=== PATIENT | female | born 1995 | race Caucasian/White ===

== ENCOUNTER 2019-04-28 10:18 | Inpatient (IN) ==
--- NOTE | 2019-04-27 09:27 | Anesthesiology Consultation ---
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 Surgery Operation Date: 04/28/19 11:15 Proposed Procedures p Colonoscopy Dr Donis - Pedrito Donis MD Height/Weight Height: 5 ft 7 in Weight: 54.431 kg Allergies Allergy/AdvReac Type Severity Reaction Status Date / Time cat dander Allergy Mild sneezing, Verified 04/28/19 10:28 watery eyes Medications Home Medications Medication Instructions Recorded Confirmed Last Taken acetaminophen [Tylenol] 325 mg PO QID PRN 04/02/18 04/28/19 04/28/19 06:30 albuterol sulfate 1 puff INHALATION Q6H PRN 04/24/19 04/28/19 Unknown balsalazide 750 mg PO QID 04/24/19 04/28/19 04/25/19 levonorgestrel [Mirena] 20 mcg INTRAUTERINE UD 04/24/19 04/28/19 04/28/19 prednisone 50 mg PO QAM 04/24/19 04/28/19 04/28/19 06:45 ondansetron 4 mg PO Q8H PRN #10 tab 04/27/19 04/27/19 tramadol 50 mg PO Q6H PRN 04/28/19 04/28/19 04/27/19 Past Medical History Medical History Anxiety no meds Asthma exercise induced--inhaler prn Ulcerative colitis Past Family History Family History Family/Other Family hx of colon cancer Family/Other Family hx colonic polyps Other No family history of adverse response to anesthesia No significant family history Past Surgical History Surgical History History of colonoscopy History of wisdom tooth extraction Social History Smoking Status: Never smoker Do You Dip or Chew Tobacco: No Hx Alcohol Use: Yes Alcohol type: beer and hard liquor alcohol intake frequency: other Alcohol Intake Frequency Comment: 1 drink a month Hx Substance Use: Yes (per pt "hasnt used marijuana for years") substance use type: marijuana Last Used Substance: Unknown Last Used Substance Other:: years ago Physical Exam Vital Signs Last Vital Signs Temp 36.9 C 04/28/19 10:41 Pulse 105 H 04/28/19 10:41 Resp 18 04/28/19 10:41 BP 105/68 04/28/19 10:41 Pulse Ox 99 04/28/19 10:41 Testing Laboratory Results 04/28/19 10:37 POC Ur Test NEG
[2019-04-28] MEDS ORDERED: ePHEDrine sulfate 50 MG/ML AMP IV PRN (10:59)
[2019-04-28] MEDS ORDERED: fentaNYL citrate 100 MCG/2 ML VIAL IV PRN (10:59)
[2019-04-28] MEDS ORDERED: ATROPINE SULFATE 0.1 MG/ML 10ML SYR IV PRN (10:59)
[2019-04-28] MEDS ORDERED: ONDANSETRON INJ 2 MG/ML 2 ML VIAL IV PRN ×2 (10:59→15:44)
[2019-04-28] MEDS ORDERED: PROMETHAZINE HCL 6.25 MG in SODIUM CHLORIDE 0.9% 50 ML IV PRN (10:59)
--- NOTE | 2019-04-28 11:10 | History & Physical Report ---
Date of Service April 28, 2019 Assessment & Plan (1) Encounter for pre-operative examination: History of Present Illness Primary Care Provider: [facility] Ulcerative colitis with suspected flare Allergies Allergy/AdvReac Type Severity Reaction Status Date / Time cat dander Allergy Mild sneezing, Verified 04/28/19 10:28 watery eyes Home Medications Home Medications Medication Instructions Recorded Confirmed Type acetaminophen [Tylenol] 325 mg PO QID PRN 04/02/18 04/28/19 History albuterol sulfate 1 puff INHALATION Q6H PRN 04/24/19 04/28/19 History balsalazide 750 mg PO QID 04/24/19 04/28/19 History levonorgestrel [Mirena] 20 mcg INTRAUTERINE UD 04/24/19 04/28/19 History prednisone 50 mg PO QAM 04/24/19 04/28/19 History ondansetron 4 mg PO Q8H PRN #10 tab 04/27/19 Rx tramadol 50 mg PO Q6H PRN 04/28/19 04/28/19 History Past Med/Surg History Medical History Anxiety no meds Asthma exercise induced--inhaler prn Ulcerative colitis Surgical History History of colonoscopy History of wisdom tooth extraction Family History Family/Other Family hx of colon cancer Family/Other Family hx colonic polyps Other No family history of adverse response to anesthesia No significant family history Social History Preferred Language: Romansh Communication Ability: Effective Ict Managers Required: No Beliefs That Will Affect Care: None Current Living Situation: Significant Other and Other Current Living Situation Comment: Lives with boyfriend and roommates Other Information That Helps Us Care for You: No Feels Safe at Home: Yes Safety Concerns: Feels Safe At This Time Smoking Status: Never smoker Do You Dip or Chew Tobacco: No ; Second Hand Exposure: Yes (mom smoked) ; Tobacco Cessation Education Requested by Patient: No Hx Alcohol Use: Yes Alcohol type: beer and hard liquor Hx Substance Use: Yes (per pt "hasnt used marijuana for years") substance use type: marijuana Last Used Substance: Unknown Last Used Substance Other:: years ago Review of Systems All systems reviewed & are unremarkable except as noted in HPI & below Physical Exam Constitutional: comfortable; no acute distress Respiratory: normal respiratory effort, lungs clear to auscultation Cardiovascular: RRR, no murmur, no edema Gastrointestinal (Abdomen): normal bowel sounds, soft, nontender, no hepatosplenomegaly Results & Data Vital Signs (Past 12 Hours) Vital Signs Temp Pulse Resp BP Pulse Ox 04/28/19 10:41 36.9 C 105 H 18 105/68 99
[2019-04-28] MEDS ORDERED: PROPOFOL IV EMULSION 10 MG/ML 20 ML VIAL IV ONE (11:45)
[2019-04-28] MEDS ORDERED: LIDOCAINE HCL 2% 2 ML VIAL/AMP(20MG/ML) INFIL ONE (11:45)
--- NOTE | 2019-04-28 11:50 | Anesthesiology Progress Note ---
Date of Service April 28, 2019 Anesthesia Post Procedure Vital Signs Vital Signs: Temp Pulse Resp BP Pulse Ox 04/28/19 11:45 88 16 98/60 L 97 04/28/19 10:41 36.9 C 105 H 18 105/68 99 Transfer of Care Handoff Completed per policy Notes Mental Status: alert / awake / arousable and participated in evaluation Patient Amnestic to Procedure: Yes Nausea / Vomiting: adequately controlled Pain: adequately controlled Airway Patency, RR, SpO2: stable & adequate BP & HR: stable & adequate Hydration State: stable & adequate Anesthetic Complications: no major complications apparent and Pt Satisfied with anesthetic care
--- NOTE | 2019-04-28 12:24 | GI REPORT ---
Patient Name: Leigh Ann Leonardo Procedure Date: 04/28/2019 11:05 AM Date of : 1995 Admit Type: Outpatient Age: 24 Gender: Female Attending MD: Pedrito Donis MD Procedure: Colonoscopy Providers: Pedrito Donis MD Referring MD: Herbert Mccracken Indications: Rectal bleeding, Follow-up of ulcerative colitis Medicines: Propofol per Anesthesia Complications: No immediate complications. Estimated Blood Loss: Estimated blood loss: none. Procedure: Pre-Anesthesia Assessment: - Prior to the procedure, a History and Physical was performed, and patient medications, allergies and sensitivities were reviewed. The patient's tolerance of previous anesthesia was reviewed. - The risks and benefits of the procedure and the sedation options and risks were discussed with the patient. All questions were answered and informed consent was obtained. - Patient identification and proposed procedure were verified prior to the procedure by the physician and the nurse. The procedure was verified in the procedure room. - Pre-procedure physical examination revealed no contraindications to sedation. After I obtained informed consent, the scope was passed under direct vision. Throughout the procedure, the patient's blood pressure, pulse, and oxygen saturations were monitored continuously. The scope was introduced through the anus and advanced to the terminal ileum. The colonoscopy was performed without difficulty. The patient tolerated the procedure well. The quality of the bowel preparation was good. The terminal ileum, ileocecal valve, appendiceal orifice, and rectum were photographed. Findings: The perianal and digital rectal examinations were normal. The terminal ileum appeared normal. Inflammation was found in a continuous and circumferential pattern from the rectum to the transverse colon which was graded as Wang Score 3 (severe, with spontaneous bleeding, ulcerations) and less severe from the transverse to the cecum with multiple pseudopolyps on the right sided colon. Biopsies were taken with a cold forceps for histology. Verification of patient identification for the specimen was done by the physician and nurse using the patient's name and date. Non-bleeding external hemorrhoids were found during retroflexion. The hemorrhoids were medium-sized. Impression: - The examined portion of the ileum was normal. - Severe (Wang Score 3) pancolitis ulcerative colitis, left side worse than right side. Biopsied. Recommendation: - [facility]. - Start IV Methylprednisolone 20mg q8hrs. - Check ESR, CRP. - VTE prophylaxis. - Rowasa enema 4gm qhs. - Check gold quantifirone and HBV serology. - Initiate process to start Humira Sq as OP. - Full liquid diet. - No aspirin, ibuprofen, naproxen, or other non-steroidal anti-inflammatory drugs. - Await pathology results. - Repeat colonoscopy in 6 months to assess disease activity and to evaluate the response to therapy. - Return to GI office as previously scheduled. Pedrito Donis MD 04/28/2019 12:24:19 PM This report has been signed electronically. Note Initiated On: 04/28/2019 11:05 AM Number of Addenda: 0 I attest to the content of the Intraoperative Record and orders documented therein, exceptions below {[id number]}
--- NOTE | 2019-04-28 14:18 | Gastrointestinal Consultation ---
Date of Consultation April 28, 2019 Assessment & Plan (1) Ulcerative colitis with rectal bleeding: - Start IV Methylprednisolone 20mg q8hrs. - IV Fluids. - Check ESR, CRP, CBC, CMP. - Stool Cx. - VTE prophylaxis. - Rowasa enema 4gm qhs. - Check gold quantifirone and HBV serology. - Initiate process to start Humira Sq as OP. - clear liquid diet. - No NSAIDs. - Surgery evaluation if signs of fulminent colitis (fever, tachycardia, toxic megacolon, peritonitis). History of Present Illness Attending Physician: Pedrito Donis MD 24 years old female patient with ulcerative colitis on Balsalazide, had symptoms of flare a week ago which did not respond to PO steroids, colonoscopy today showed severe pancolits, Left side worse than right, being admitted for IV hydration, IV steroids and bowel rest and management of acute flare. She has rectal bleeding, diarrhea and abdominal pain but no signs of fulminant colitis at this time. Allergies Allergy/AdvReac Type Severity Reaction Status Date / Time cat dander Allergy Mild sneezing, Verified 04/28/19 10:28 watery eyes Home Medications Home Medications Medication Instructions Recorded Confirmed Type acetaminophen [Tylenol] 325 mg PO QID PRN 04/02/18 04/28/19 History albuterol sulfate 1 puff INHALATION Q6H PRN 04/24/19 04/28/19 History balsalazide 750 mg PO QID 04/24/19 04/28/19 History levonorgestrel [Mirena] 20 mcg INTRAUTERINE UD 04/24/19 04/28/19 History prednisone 50 mg PO QAM 04/24/19 04/28/19 History ondansetron 4 mg PO Q8H PRN #10 tab 04/27/19 Rx tramadol 50 mg PO Q6H PRN 04/28/19 04/28/19 History Patient History Medical History Anxiety no meds Asthma exercise induced--inhaler prn Ulcerative colitis Surgical History History of colonoscopy History of wisdom tooth extraction Family History Family/Other Family hx of colon cancer Family/Other Family hx colonic polyps Other No family history of adverse response to anesthesia No significant family history Social History Preferred Language: Vietnamese Communication Ability: Effective Signal Helper Required: No Beliefs That Will Affect Care: None Current Living Situation: Significant Other and Other Current Living Situation Comment: Lives with boyfriend and roommates Other Information That Helps Us Care for You: No Feels Safe at Home: Yes Safety Concerns: Feels Safe At This Time Smoking Status: Never smoker Do You Dip or Chew Tobacco: No ; Second Hand Exposure: Yes (mom smoked) ; Tobacco Cessation Education Requested by Patient: No Hx Alcohol Use: Yes Alcohol type: beer and hard liquor Hx Substance Use: Yes (per pt "hasnt used marijuana for years") substance use type: marijuana Last Used Substance: Unknown Last Used Substance Other:: years ago Review of Systems Constitutional: no fever, no chills, no fatigue and no weight loss Eyes: no eye pain and no worsening vision Ear, Nose, Mouth, Throat: no tinnitus, no dizziness, no nasal discharge and no epistaxis Respiratory: no cough, no dyspnea, no dyspnea on exertion and no wheezing Cardiovascular: no chest pain, no orthopnea, no palpitations and no edema Gastrointestinal: as per Subjective / HPI Genitourinary: no dysuria, no urinary frequency, no urinary incontinence and no hematuria Musculoskeletal: no stiffness and no myalgia Neurologic: no localized weakness, no paralysis, no tremor(s) and no headache(s) Endocrine: no polydipsia and no polyuria Hematologic / Lymphatic: no easy bleeding and no night sweats Physical Exam Constitutional: + well hydrated, cooperative and comfortable Eyes: PERRL, conjunctivae normal, anicteric sclerae ENMT: external ear and nose normal, oropharynx normal Neck: normal visual inspection and trachea midline Respiratory: normal respiratory effort, lungs clear to auscultation Auscultation: no wheezes Cardiovascular: RRR, no murmur, no edema Gastrointestinal (Abdomen): normal bowel sounds, soft, nontender, no hepatosplenomegaly Musculoskeletal: no cyanosis or clubbing, extremities motor strength 5/5 Skin: no rashes, warm and dry Neurologic: awake; no focal motor deficits Motor/Sensory: no tremor Results & Data Vital Signs (Past 12 Hours) Vital Signs Temp Pulse Resp BP Pulse Ox 04/28/19 13:30 80 14 105/69 98 04/28/19 13:00 78 14 102/70 99 04/28/19 12:30 73 16 103/68 100 04/28/19 12:15 66 14 95/61 L 97 04/28/19 12:00 66 14 93/61 L 98 04/28/19 11:45 88 16 98/60 L 97 04/28/19 10:41 36.9 C 105 H 18 105/68 99 Laboratory Results Laboratory Results - last 24 hr 04/28/19 10:37 POC Ur Test NEG
[2019-04-28] MEDS ORDERED: ACETAMINOPHEN 325 MG TAB PO PRN (15:44)
[2019-04-28] MEDS ORDERED: ALBUTEROL HFA 8 GM INHALER INH PRN (15:44)
[2019-04-28] MEDS ORDERED: MIRENA IUD PV SCH (15:44)
[2019-04-28] MEDS: LACTATED RINGER'S 1,000 ML IV SCH (17:24)
[2019-04-28] MEDS: metroNIDAZOLE 500 MG/100 ML BAG IV SCH (18:33)
--- NOTE | 2019-04-28 18:48 | History & Physical Report ---
Date of Service April 28, 2019 Assessment & Plan (1) Ulcerative colitis with rectal bleeding: Patient with ulcerative colitis, symptoms not responsive to outpatient treatment. Colonoscopy performed today with pancolitis left worse than right. Admit to medical floor Check ESR, CRP Check hepatitis B serologies in preparation to initiate Humira Check QuantiFERON gold in preparation to initiate Humira Check stool culture Clear liquid diet IV fluid with LR at 100 mL/h x 2 L Solu-Medrol 20 mg IV 3 times daily Flagyl 500 mg IV 3 times daily Mesalamine enema nightly GI consultation (2) Asthma: Exercise-induced asthma. Chronic. Stable. Albuterol as needed F/E/N -LR at 100 mL/h x 2 L, monitor electrolytes and replete as needed, clear liquid diet as tolerated ProphylaxisSCDs to bilateral lower extremities Codefull Dispositionadmit to medical floor History of Present Illness Chief Complaint: Flare of ulcerative colitis Primary Care Provider: [facility] Leigh Ann Leonardo is a 24-year-old female with history of ulcerative colitis on balsalazide presenting with approximately 2 weeks of worsening UC symptoms to include rectal bleeding, cramping, pain and diarrhea. She was started on a steroid taper just before 04/22 and was currently taking prednisone 50 mg p.o. daily. She reports a low-grade subjective fever last night. She had a colonoscopy performed today by Dr. Donis which revealed severe pancolitis, left side worse than right. Admission requested for treatment of UC flare. Patient complaining of mild abdominal pain otherwise no complaints at this time. Allergies Allergy/AdvReac Type Severity Reaction Status Date / Time cat dander Allergy Mild sneezing, Verified 04/28/19 10:28 watery eyes Home Medications Home Medications Medication Instructions Recorded Confirmed Type acetaminophen [Tylenol] 325 mg PO QID PRN 04/02/18 04/28/19 History albuterol sulfate 1 puff INHALATION Q6H PRN 04/24/19 04/28/19 History balsalazide 750 mg PO QID 04/24/19 04/28/19 History levonorgestrel [Mirena] 20 mcg INTRAUTERINE UD 04/24/19 04/28/19 History prednisone 50 mg PO QAM 04/24/19 04/28/19 History ondansetron 4 mg PO Q8H PRN #10 tab 04/27/19 Rx tramadol 50 mg PO Q6H PRN 04/28/19 04/28/19 History Past Med/Surg History Medical History Anxiety no meds Asthma exercise induced--inhaler prn Ulcerative colitis Surgical History History of colonoscopy History of wisdom tooth extraction Family History Family/Other Family hx of colon cancer Family/Other Family hx colonic polyps Other No family history of adverse response to anesthesia No significant family history Social History Preferred Language: Portuguese Communication Ability: Effective Manager Lan Required: No Beliefs That Will Affect Care: None Current Living Situation: Other Current Living Situation Comment: roommates x 4 Other Information That Helps Us Care for You: No Feels Safe at Home: Yes Safety Concerns: Feels Safe At This Time Smoking Status: Never smoker Do You Dip or Chew Tobacco: No ; Second Hand Exposure: No ; Tobacco Cessation Education Requested by Patient: No Hx Alcohol Use: Yes Alcohol type: beer and hard liquor Hx Substance Use: No Review of Systems Review of Systems: All systems reviewed & are unremarkable except as noted in HPI & below Patient had a recent upper respiratory infection, symptoms now improving Physical Exam Physical Exam: General: patient resting comfortably, NAD, non-toxic in appearance, AA&O x 4 Skin: warm, dry, intact, no rashes or lesions HEENT: NC/AT, PERRL, EOMI, anicteric sclera, conjunctiva without injection, external ear normal to inspection and nontender, nares patent, moist mucus membranes, dentition intact, no oropharyngeal lesions, neck supple, trachea midline, no LAD, no thyromegaly, no JVD Heart: +S1/S2, regular, no m/r/g Lungs: equal air entry bilaterally, no rales/rhonchi/wheezes Abd: +BS, soft, NT/ND, no masses/organomegaly/ascites Ext: warm, 2+ pulses in UE/LE bilaterally, no clubbing/cyanosis or edema Neuro: nonfocal, patient AA&O x 4, speech intact, no facial droop, moving all extremities on command with equal strength 5/5 Results & Data Vital Signs (Past 12 Hours) Vital Signs Temp Pulse Resp BP Pulse Ox 04/28/19 15:45 36.8 C 75 14 102/64 98 04/28/19 14:51 73 14 96/69 L 98 04/28/19 13:30 80 14 105/69 98 04/28/19 13:00 78 14 102/70 99 04/28/19 12:30 73 16 103/68 100 04/28/19 12:15 66 14 95/61 L 97 04/28/19 12:00 66 14 93/61 L 98 04/28/19 11:45 88 16 98/60 L 97 04/28/19 10:41 36.9 C 105 H 18 105/68 99 Laboratory Results Lab Results 04/28/19 Range/Units 10:37 POC Ur Test NEG (NEG) Diagnostic Findings Colonoscopy 04/28/2019: The examined portion of the ileum was normal. Severe (Wang score 3) pancolitis ulcerative colitis, left side worse than right side. Biopsied. Code Status & VTE Plan Code Status Full code VTE Prophylaxis Plan VTE Prophylaxis will be ordered: Yes PG Care Time/CCT Total # of Minutes Spent Total Time Spent with Patient: Total time spent is greater than 50% in coordination of care (as documented) at patient's floor/unit and/or counseling patient: (1) Ulcerative colitis with rectal bleeding Ulcerative colitis location: ulcerative pancolitis Qualified Code(s): K51.011 - Ulcerative (chronic) pancolitis with rectal bleeding (2) Asthma Asthma severity: mild Asthma persistence: intermittent Asthma complication type: uncomplicated Qualified Code(s): J45.20 - Mild intermittent asthma, uncomplicated
[2019-04-28] MEDS ORDERED: MESALAMINE 4 GM/60 ML ENEMA PR ONE (19:00)
[2019-04-28] MEDS ORDERED: LORazepam 1 MG/2 ML VIAL IV STA (21:50)
[2019-04-28] MEDS: methylPREDNISolone 20 MG in SYRINGE 0 ML IV SCH (22:18)
[2019-04-28] MEDS: TRAMADOL HCL 50 MG TABLET PO PRN (22:50)
[2019-04-29] MEDS: metroNIDAZOLE 500 MG/100 ML BAG IV SCH ×3 (02:21→19:15)
[2019-04-29] MEDS: LACTATED RINGER'S 1,000 ML IV SCH (02:22)
[2019-04-29 08:03] LABS: Basophils # (auto) 0.01 K/uL (0-0.2); Basophils % (auto) 0.1 %; Hemoglobin 11.5 g/dL (12.0-16.0); Immature Granulocytes # (auto) 0.03 K/uL (0.00-0.02); Immature Granulocytes % (auto) 0.3 %; Lymphocytes # (auto) 1.24 K/uL (1.2-3.4); Mean Corpuscular Hemoglobin 29.9 pg (25-34); Mean Corpuscular Hgb Conc 33.8 g/dL (32-36); Mean Corpuscular Volume 88.3 fL (80-100); Mean Platelet Volume 8.5 fL (7.4-10.4); Monocytes % (auto) 10.7 %; Neutrophils # (auto) 8.77 K/uL (1.4-6.5); Neutrophils % (auto) 77.9 %; Platelet Count 303 K/uL (130-400); RDW Coefficient of Variation 12.1 % (11.5-14.5); RDW Standard Deviation 38.8 fL (36.4-46.3); Red Blood Count 3.85 M/uL (4.2-5.4); White Blood Count 11.25 K/uL (4.8-10.8)
[2019-04-29 08:31] LABS: BUN Creatinine Ratio 9.9 (10-20); C Reactive Protein 11.9 mg/dl (0-0.29); Calcium 9.2 mg/dl (8.5-10.1); Est GFR (African American) 123.2; Est GFR (Non-African American) 106.3; Magnesium 1.9 mg/dl (1.8-2.4); Phosphorus 3.3 mg/dl (2.5-4.9); Potassium 3.9 mmol/L (3.5-5.1)
[2019-04-29 08:37] LABS: Hepatitis B Surface Ab Quant 5.82 mIU/mL (>or=10mIU/mL Immune); Hepatitis B Surface Antibody Non-Immune
[2019-04-29 08:48] LABS: Hepatitis B Surface Antigen Neg (Neg)
[2019-04-29] MEDS: methylPREDNISolone 20 MG in SYRINGE 0 ML IV SCH ×3 (09:19→22:10)
--- NOTE | 2019-04-29 10:04 | Hospitalist Progress Note ---
Date of Service April 29, 2019 Assessment & Plan (1) Ulcerative colitis with rectal bleeding: Ms. Leonardo is a 24 y/o F with diagnosis of UC last year - current exacerbation not responsive to outpatient treatment - Has had approx. 3 BMs today with continued bloody stool; Hgb 11.5 and will monitor - Hepatitis B and Quantiferon gold studies obtained in preparation to possibly initiate Humira; patient is a [facility] patient but due to insurance changing will be transitioning to [facility] as they are in-network - Likely diarrhea in setting of UC - if becomes febrile or symptoms worsen consider c. diff assessment as she would be at increased risk - Continue clear liquid diet at this time; Continue LR 100 mL/hr - Flagyl 500 mg Q8H IV - Methylprednisolone 20 mg IV TID; Mesalamine SC HS - GI Following - appreciate input (2) Asthma: - Exercised-induced; Chronic/Stable without Exacerbation - Albuterol PRN Disposition: Await clinical improvement and diet advancement Subjective Reports she feels okay this AM. Still with intermittent cramping sensation that increases a bit after moving bowels then calms down. Still with blood stool. Hgb acceptable. Reports BM x 3 so far today about about 5-6 episodes yesterday. She was diagnosed with UC approx. one year ago and this is her first flair since diagnosis. Due to insurance changing she will be transitioning to [facility]. Tolerating a clear liquid diet at this time. Verbalizes no new complaints Review of Systems Constitutional: no fever and no chills Respiratory: no cough and no dyspnea Cardiovascular: no chest pain, no palpitations and no lightheadedness Gastrointestinal: + abdominal pain, + cramping, + diarrhea/loose stools and + blood in stools; no nausea, no vomiting and no constipation Genitourinary: no dysuria Integumentary: no rash Physical Exam Constitutional: WD/WN, vitals as above Eyes: + anicteric sclerae ENMT: Ears: no hearing impairment Mouth: oral mucous membranes not dry Neck: trachea midline Respiratory: normal respiratory effort, lungs clear to auscultation Cardiovascular: RRR, no murmur, no edema Gastrointestinal (Abdomen): Inspection/Auscultation: normal bowel sounds Percussion/Palpation: + abdomen tender and abdomen soft; no guarding and abdomen not rigid Musculoskeletal: no cyanosis or clubbing, extremities motor strength 5/5 Head/Neck/Chest: normocephalic and head atraumatic Skin: no rashes, warm and dry Neurologic: moves all extremities Psychiatric: A+Ox3, euthymic affect Results & Data Vital Signs (Past 12 Hours) Vital Signs Temp Pulse Resp BP BP Pulse Ox 04/29/19 07:05 36.5 C 80 19 92/59 L 98 04/29/19 04:00 36.8 C 82 16 105/67 97 04/28/19 23:10 37.1 C 91 H 16 103/63 99 PG Care Time/CCT Total # of Minutes Spent Total Time Spent with Patient: Total time spent is greater than 50% in coordination of care (as documented) at patient's floor/unit and/or counseling p atient: (1) Ulcerative colitis with rectal bleeding Ulcerative colitis location: ulcerative pancolitis Qualified Code(s): K51.011 - Ulcerative (chronic) pancolitis with rectal bleeding (2) Asthma Asthma severity: mild Asthma persistence: intermittent Asthma complication type: uncomplicated Qualified Code(s): J45.20 - Mild intermittent asthma, uncomplicated
[2019-04-29] MEDS ORDERED: Nursing to Pharmacy Communication ONE (11:22)
[2019-04-29] MEDS: LORazepam 0.5 MG TAB PO PRN (18:24)
[2019-04-29] MEDS ORDERED: MESALAMINE 4 GM/60 ML ENEMA PR SCH (21:00)
[2019-04-30] MEDS ORDERED: SODIUM CHLORIDE 0.9% 1000ML 1,000 ML IV SCH (01:15)
[2019-04-30] MEDS: metroNIDAZOLE 500 MG/100 ML BAG IV SCH ×3 (02:29→17:45)
[2019-04-30] MEDS: TRAMADOL HCL 50 MG TABLET PO PRN (06:00)
[2019-04-30] MEDS: methylPREDNISolone 20 MG in SYRINGE 0 ML IV SCH ×3 (08:14→20:58)
[2019-04-30 09:32] LABS: Hemoglobin 11.7 g/dL (12.0-16.0); Mean Corpuscular Hemoglobin 29.5 pg (25-34); Mean Corpuscular Hgb Conc 33.4 g/dL (32-36); Mean Corpuscular Volume 88.2 fL (80-100); Mean Platelet Volume 8.7 fL (7.4-10.4); Platelet Count 312 K/uL (130-400); RDW Coefficient of Variation 12.2 % (11.5-14.5); RDW Standard Deviation 39.5 fL (36.4-46.3); Red Blood Count 3.97 M/uL (4.2-5.4); White Blood Count 12.64 K/uL (4.8-10.8)
[2019-04-30 10:00] LABS: BUN Creatinine Ratio 15.2 (10-20); Creatinine Clr Calc Pharmacy 86.6 ml/min; Est GFR (African American) 114.3; Est GFR (Non-African American) 98.7; Potassium 3.6 mmol/L (3.5-5.1)
--- NOTE | 2019-04-30 10:17 | Gastroenterology Progress Note ---
Date of Service April 30, 2019 Assessment & Plan (1) Ulcerative colitis with rectal bleeding: - Continue IV Methylprednisolone 20mg q8hrs. - IV Fluids. - Continue Rowasa enema 4gm qhs. - Will review results of gold quantifirone when available. - Needs booster HBV vaccine, can arrange as OP. - OP GI nurses are working on prior auth for Humira (they need quantiferone results to submit). - Clear liquid diet. May slowly advance as pt feels ready. - No NSAIDs. - Surgery evaluation if signs of fulminent colitis (fever, tachycardia, toxic megacolon, peritonitis). Supervising Physician Co-Signing Physician Notes I saw and evaluated the patient. She does admit to some improvement over the last 24 hours. We will continue with her present dose of steroids and reevaluate in 24 hours. The patient will ultimately need be placed on an outpatient biologic which is in order of obtaining authorization from her insurance company Subjective Ms. Leigh Ann Leonardo is a 24 yr old female dx'ed with UC approx one year ago, despite being on po mesalamines, experienced a second flare beginning a few weeks ago and failed OP tx. Colonoscopy 04/28 with severe pancolitis L>R side. Sed 39, CRP 11. Tolerating clear liquids w/o increased pain after eating. Has constant low grade abdomen pain with severe cramping with defecation - about 4 BMs in the past 24 hrs: liquid/bloody and with small amts of fecal material. On IV steroids and IV flagyl with improvement in pain since admission. Review of Systems Review of Systems: ROS: Gen: Denies weakness, fevers, weight loss Eyes: No eye redness, or pain, no recent vision changes Resp: No SOB, no cough Cardio: No palpitations/irregular beats, no chest pain GI: See HPI : Denies pain on urination Skin: No jaundice, itching or new rashes Physical Exam Constitutional: WD/WN, vitals as above well developed, + well hydrated and + thin Eyes: PERRL, conjunctivae normal, anicteric sclerae ENMT: external ear and nose normal, oropharynx normal Neck: trachea midline, no thyromegaly Respiratory: normal respiratory effort, lungs clear to auscultation Cardiovascular: RRR, no murmur, no edema Gastrointestinal (Abdomen): Inspection/Auscultation: normal bowel sounds (active); abdomen not distended Percussion/Palpation: + abdomen tender (mild, diffuse) and abdomen soft; no guarding and abdomen not rigid Skin: no rashes, warm and dry Neurologic: PERRL, EOMI, accommodation nl, no face palsy, no dysarthria Psychiatric: A+Ox3, euthymic affect Results & Data Vital Signs (Past 12 Hours) Vital Signs Temp Pulse Resp BP Pulse Ox 04/30/19 07:36 36.8 C 102 H 19 107/72 95 04/29/19 23:20 36.7 C 82 18 95/60 L 97 (1) Ulcerative colitis with rectal bleeding Ulcerative colitis location: ulcerative pancolitis Qualified Code(s): K51.011 - Ulcerative (chronic) pancolitis with rectal bleeding
[2019-04-30] MEDS ORDERED: DICYCLOMINE HCL 10 MG CAP PO SCH (14:00)
--- NOTE | 2019-04-30 14:02 | Hospitalist Progress Note ---
Date of Service April 30, 2019 Assessment & Plan (1) Ulcerative colitis with rectal bleeding: - Presented with bloody stools; UC is not responding to current outpatient treatment - no indication for mesalamine enemas qhs. - Previously followed with [facility] but will need to transition to [facility] due to insurance coverage. - CRP 11.9, ESR 39; leukocytosis noted on labs. - On Solu-medrol 20 mg IV q8hr. - Continue Flagyl 500 mg q8hr for empiric coverage. - Hepatitis B and Quantiferon gold pending -- will need completion of tests prior to starting Humira. - Continue CLD as tolerated; IV fluids at 80 cc/hr. - GI following as inpt, greatly appreciate input. (2) Anemia: - H/H 11-12 -- possibly related to UC flare. - Will order iron studies in the AM. (3) Asthma: - Exercised-induced; no acute exacerbation noted. - Albuterol PRN (4) DVT prophylaxis: - SCDs; holding pharmacologic ppx in setting of acute bleed. Dispo: Med/surg for treatment of UC; GI following. Supervising Physician Co-Signing Physician Notes PA Supervision Note: I did not personally see or examine the patient today, but I verified all herndon points of SUZI Connelly's assessment and plan with the following exceptions/additions: None Subjective Pt. reports stool appearance is similar to sand; still has bloody stools this morning but improving overall. C/o abd cramping, now improved after having multiple episodes of diarrhea. She is tolerating a CLD. GI following, appreciate input. Review of Systems Review of Systems: All systems reviewed & are unremarkable except as noted in HPI & below Constitutional: + fatigue and + weakness; no fever, no chills and no anorexia Respiratory: no cough, no dyspnea and no dyspnea on exertion Cardiovascular: no chest pain and no edema Gastrointestinal: + abdominal pain, + bloating, + diarrhea/loose stools and + blood in stools; no nausea, no vomiting and no constipation Genitourinary: no difficulty urinating Integumentary: no non-healing lesions Physical Exam Physical Exam: General: Resting comfortably HEENT: NC/AT; PERRLA with EOMI; [place] conjunctiva, MMM. No erythema of posterior pharynx Neck: Supple and nontender Cardiac: RRR Lungs: CTA bilaterally Abdomen: Bowel normoactive X 4; Nontender to palpation Extremities: Warm. No edema present Neuro: No focal weakness Skin: No rash Results & Data Vital Signs (Past 12 Hours) Vital Signs Temp Pulse Resp BP Pulse Ox 04/30/19 07:36 36.8 C 102 H 19 107/72 95 Laboratory Results 04/30/19 04/30/19 Range/Units 09:15 09:15 WBC 12.64 H (4.8-10.8) K/uL RBC 3.97 L (4.2-5.4) M/uL Hgb 11.7 L (12.0-16.0) g/dL Hct 35.0 L (37-47) % MCV 88.2 (80-100) fL MCH 29.5 (25-34) pg MCHC 33.4 (32-36) g/dL RDW Std Deviation 39.5 (36.4-46.3) fL RDW Coeff of Lita 12.2 (11.5-14.5) % Plt Count 312 (130-400) K/uL MPV 8.7 (7.4-10.4) fL Sodium 137 (136-145) mmol/L Potassium 3.6 (3.5-5.1) mmol/L Chloride 103 (98-107) mmol/L Carbon Dioxide 24 (21-32) mmol/L Anion Gap 9.0 (3-11) BUN 13 D (7-18) mg/dl Creatinine 0.84 (0.6-1.2) mg/dl Est Cr Clr Drug Dosing 86.6 ml/min Est GFR ( Amer) 114.3 Est GFR (Non-Af Amer) 98.7 BUN/Creatinine Ratio 15.2 (10-20) Glucose 90 (70-99) mg/dl Calcium 9.0 (8.5-10.1) mg/dl Magnesium 2.0 (1.8-2.4) mg/dl PG Care Time/CCT Total # of Minutes Spent Total Time Spent with Patient: Total time spent is greater than 50% in coordination of care (as documented) at patient's floor/unit and/or counseling patient: (1) Ulcerative colitis with rectal bleeding Ulcerative colitis location: ulcerative pancolitis Qualified Code(s): K51.011 - Ulcerative (chronic) pancolitis with rectal bleeding (2) Asthma Asthma complication type: uncomplicated Asthma persistence: intermittent Asthma severity: mild Qualified Code(s): J45.20 - Mild intermittent asthma, uncomplicated
[2019-04-30] MEDS ORDERED: DICYCLOMINE HCL 10 MG CAP PO PRN (15:04)
[2019-04-30] MEDS: SODIUM CHLORIDE 0.9% 1000ML 1,000 ML IV SCH (15:50)
[2019-04-30] MEDS: LORazepam 0.5 MG TAB PO PRN (15:53)
[2019-05-01] MEDS: metroNIDAZOLE 500 MG/100 ML BAG IV SCH ×2 (02:42→12:48)
[2019-05-01] MEDS: SODIUM CHLORIDE 0.9% 1000ML 1,000 ML IV SCH ×2 (02:43→17:12)
[2019-05-01 05:54] LABS: Hematocrit (blood only) 33.5 % (37-47); Hemoglobin 11.3 g/dL (12.0-16.0); Mean Corpuscular Hemoglobin 30.1 pg (25-34); Mean Corpuscular Hgb Conc 33.7 g/dL (32-36); Mean Corpuscular Volume 89.1 fL (80-100); Mean Platelet Volume 8.8 fL (7.4-10.4); Platelet Count 327 K/uL (130-400); RDW Coefficient of Variation 12.3 % (11.5-14.5); RDW Standard Deviation 39.5 fL (36.4-46.3); Red Blood Count 3.76 M/uL (4.2-5.4); White Blood Count 10.12 K/uL (4.8-10.8)
[2019-05-01 06:24] LABS: BUN Creatinine Ratio 20.9 (10-20); Calcium 8.7 mg/dl (8.5-10.1); Creatinine Clr Calc Pharmacy 115.4 ml/min; Est GFR (African American) 147.6; Est GFR (Non-African American) 127.3; Potassium 3.8 mmol/L (3.5-5.1)
[2019-05-01 06:29] LABS: Ferritin 117.3 ng/ml (8-388)
[2019-05-01] MEDS: LORazepam 0.5 MG TAB PO PRN (06:29)
[2019-05-01] MEDS ORDERED: PROCHLORPERAZINE 10 MG in SYRINGE 8 ML IV PRN (08:51)
[2019-05-01] MEDS ORDERED: SODIUM CHLORIDE 0.9% 1000ML 500 ML IV ONE (09:25)
[2019-05-01] MEDS: methylPREDNISolone 20 MG in SYRINGE 0 ML IV SCH ×3 (09:34→20:13)
--- NOTE | 2019-05-01 11:47 | Gastroenterology Progress Note ---
Date of Service May 01, 2019 Assessment & Plan (1) Ulcerative colitis with rectal bleeding: - Perhaps nausea is related to IV flagyl - will DC. - DC dicyclomine, not effective. Begin Levsin SL. - Continue IV Methylprednisolone 20mg q8hrs and IV Fluids. - Offered full liquid diet but pt does not feel ready, OK to stay with clear liquids. - Will review results of gold quantifirone when available. - Needs booster HBV vaccine, can arrange as OP. - OP GI nurses are working on prior auth for Humira (they need quantiferon results to submit). - No NSAIDs. - If does not improve, then would need to consider referral to tertiary care center to consider brief cyclosporine tx in addition to above medications. - Surgery evaluation if signs of fulminent colitis (fever, tachycardia, toxic megacolon, peritonitis). Present on Admission?: Yes Supervising Physician Co-Signing Physician Notes I saw and evaluated the patient. She notes that she is not feeling any i mprovement as of yet. She reports that she had at least 8 bowel movements that were loose to liquid in consistency overnight. She also notes that she has a large amount of nausea and does not feel well or able to tolerate p.o. Physical exam Thin appearing female Impression: Patient with a history of ulcerative colitis who appears to be slowly responding to intravenous steroid therapy. I would suggest discontinuation of metronidazole as this could be causing some of her nausea. I would also suggest repeating a stool for C. difficile to ensure that she does not have an underlying infection. We are awaiting the studies for tuberculosis, if negative the plan was to start use of Humira. Should the patient not improve with steroids over the weekend or worsen perhaps it would be prudent to refer her to a tertiary center with expertise in use of complex IBD patients that require cyclosporine. Subjective Ms. Leigh Ann Leonardo is a 24 yr old female dx'ed with UC approx one year ago, despite being on po mesalamines, experienced a second flare beginning a few weeks ago and failed OP tx. Colonoscopy 04/28 with severe pancolitis L>R side. Sed 39, CRP 11. Worsened pain and abdominal cramping today compared to yesterday though reports less blood in BMs. "Afraid," to eat the clear liquid diet as concerned it may worsen her abdomen pain. Also c/o nausea. On IV steroids and IV flagyl. Though improved compared to admission, worsened pain/prolonged cramping with defecation and increased frequency of defecation today compare to yesterday yesterday. Review of Systems Review of Systems: ROS: Gen: C/o weakness, + worried about weight loss; denies weight loss. Eyes: No eye redness, or pain, no recent vision changes Resp: No SOB, no cough Cardio: No palpitations/irregular beats, no chest pain GI: See HPI : Denies pain on urination Skin: No jaundice, itching or new rashes Gastrointestinal: as per Subjective / HPI Physical Exam Constitutional: WD/WN, vitals as above well developed, + well hydrated and + thin Tearful, hugging her stuffed animal. Eyes: PERRL, conjunctivae normal, anicteric sclerae ENMT: external ear and nose normal, oropharynx normal Neck: trachea midline, no thyromegaly Respiratory: normal respiratory effort, lungs clear to auscultation Cardiovascular: RRR, no murmur, no edema Gastrointestinal (Abdomen): Inspection/Auscultation: normal bowel sounds (active); abdomen not distended Percussion/Palpation: + abdomen tender (mild, diffuse) and abdomen soft; no guarding and abdomen not rigid Skin: no rashes, warm and dry Neurologic: PERRL, EOMI, accommodation nl, no face palsy, no dysarthria Psychiatric: A+Ox3, euthymic affect Results & Data Vital Signs (Past 12 Hours) Vital Signs Temp Pulse Resp BP Pulse Ox 05/01/19 08:32 37.3 C 121 H 22 90/57 L 98 Laboratory Results Electrolytes normal. Hb 11.3, Hct 33.5. (1) Ulcerative colitis with rectal bleeding Ulcerative colitis location: ulcerative pancolitis Qualified Code(s): K51.011 - Ulcerative (chronic) pancolitis with rectal bleeding
--- NOTE | 2019-05-01 15:33 | Hospitalist Progress Note ---
Date of Service May 01, 2019 Assessment & Plan (1) Ulcerative colitis with rectal bleeding: - Presented with bloody stools; UC is not responding to current outpatient treatment. - Previously followed with [facility] but will need to transition to [facility] due to insurance coverage. - CRP 11.9, ESR 39; leukocytosis now resolved on labs. - Continue Solu-medrol 20 mg IV q8hr. - Zofran and Compazine prn N/V; Hyoscyamine prn abd pain/cramping. - Flagyl was discontinued - may have been contributing to nausea. - Needs HBV vaccine; Quantiferon gold pending -- will need completion of test prior to starting Humira. - Continue CLD, advance if N/V/D improving; IV fluids at 100 cc/hr. - GI following as inpt, greatly appreciate input. If pt. does not improve over next few days, will need transferred to tertiary care for brief cyclosporine treatment. (2) Anemia: - H/H 11-12 -- possibly related to UC flare. - No evidence of GRISELDA on labs. (3) Asthma: - Exercised-induced; no acute exacerbation noted. - Albuterol PRN. (4) DVT prophylaxis: - SCDs; hold pharmacologic ppx in setting of acute bleed. Dispo: Med/surg for treatment of UC; GI following. Supervising Physician Co-Signing Physician Notes PA Supervision Note: I did not personally see or examine the patient today, but I verified all herndon points of SUZI Connelly's assessment and plan with the following exceptions/additions: None Subjective Pt. had episode of emesis this morning after eating CLD for breakfast, attempting to have a BM. She reports abd cramping and nausea now resolved. Is having frequent diarrhea but bloody stools resolving. She would prefer to dis continue use of Mesalamine enemas. BP was low, HR elevated this morning, now improving. Review of Systems Review of Systems: All systems reviewed & are unremarkable except as noted in HPI & below Constitutional: + fatigue, + weakness and + anorexia; no fever and no chills Respiratory: no cough, no dyspnea and no dyspnea on exertion Cardiovascular: no chest pain, no palpitations and no edema Gastrointestinal: + abdominal pain, + bloating, + nausea, + vomiting and + diarrhea/loose stools; no constipation and no blood in stools Genitourinary: no difficulty urinating Musculoskeletal: no back pain and no joint pain Physical Exam Physical Exam: General: Resting comfortably HEENT: NC/AT; PERRLA with EOMI; [place] conjunctiva, MMM. No erythema of posterior pharynx Neck: Supple and nontender Cardiac: RRR Lungs: CTA bilaterally Abdomen: Bowel normoactive X 4; Nontender to palpation Extremities: Warm. No edema present Neuro: No focal weakness Skin: No rash Results & Data Vital Signs (Past 12 Hours) Vital Signs Temp Pulse Resp BP Pulse Ox 05/01/19 15:20 36.8 C 71 16 98/64 L 98 05/01/19 08:32 37.3 C 121 H 22 90/57 L 98 Laboratory Results 05/01/19 05/01/19 05/01/19 Range/Units Unknown 05:16 05:16 WBC 10.12 (4.8-10.8) K/uL RBC 3.76 L (4.2-5.4) M/uL Hgb 11.3 L (12.0-16.0) g/dL Hct 33.5 L (37-47) % MCV 89.1 (80-100) fL MCH 30.1 (25-34) pg MCHC 33.7 (32-36) g/dL RDW Std Deviation 39.5 (36.4-46.3) fL RDW Coeff of Lita 12.3 (11.5-14.5) % Plt Count 327 (130-400) K/uL MPV 8.8 (7.4-10.4) fL Sodium 137 (136-145) mmol/L Potassium 3.8 (3.5-5.1) mmol/L Chloride 106 (98-107) mmol/L Carbon Dioxide 28 (21-32) mmol/L Anion Gap 3.0 (3-11) BUN 13 (7-18) mg/dl Creatinine 0.63 (0.6-1.2) mg/dl Est Cr Clr Drug Dosing 115.4 ml/min Est GFR ( Amer) 147.6 Est GFR (Non-Af Amer) 127.3 BUN/Creatinine Ratio 20.9 H (10-20) Glucose 91 (70-99) mg/dl Calcium 8.7 (8.5-10.1) mg/dl Iron 30 L (35-150) mcg/dl TIBC 181 L (250-450) mcg/dl Transferrin 133 L (200-360) mg/dl Transferrin % Sat 16 (15-50) % Ferritin 117.3 (8-388) ng/ml Stl C. diff Tox B Gene Negative Cdiff Gene (Neg) PG Care Time/CCT Total # of Minutes Spent Total Time Spent with Patient: Total time spent is greater than 50% in coordination of care (as documented) at patient's floor/unit and/or counseling patient: (1) Ulcerative colitis with rectal bleeding Ulcerative colitis location: ulcerative pancolitis Qualified Code(s): K51.011 - Ulcerative (chronic) pancolitis with rectal bleeding (2) Asthma Asthma complication type: uncomplicated Asthma persistence: intermittent Asthma severity: mild Qualified Code(s): J45.20 - Mild intermittent asthma, uncomplicated
[2019-05-01 15:46] LABS: Hepatitis B Core Antibody IgM NON-REACTIVE (NON-REACTIVE); Hepatitis B Core Antibody Total NON-REACTIVE (NON-REACTIVE)
[2019-05-02] MEDS: SODIUM CHLORIDE 0.9% 1000ML 1,000 ML IV SCH ×3 (02:04→21:26)
[2019-05-02] MEDS: HYOSCYAMINE SULFATE 0.125 MG TAB SL PRN ×2 (06:23→19:07)
[2019-05-02 06:50] LABS: Hematocrit (blood only) 36.9 % (37-47); Hemoglobin 12.4 g/dL (12.0-16.0); Mean Corpuscular Hemoglobin 29.8 pg (25-34); Mean Corpuscular Hgb Conc 33.6 g/dL (32-36); Mean Corpuscular Volume 88.7 fL (80-100); Mean Platelet Volume 8.6 fL (7.4-10.4); Platelet Count 361 K/uL (130-400); RDW Coefficient of Variation 12.3 % (11.5-14.5); RDW Standard Deviation 39.8 fL (36.4-46.3); Red Blood Count 4.16 M/uL (4.2-5.4); White Blood Count 11.83 K/uL (4.8-10.8)
[2019-05-02 07:20] LABS: BUN Creatinine Ratio 17.1 (10-20); Calcium 9.2 mg/dl (8.5-10.1); Creatinine Clr Calc Pharmacy 95.7 ml/min; Est GFR (African American) 129.1; Est GFR (Non-African American) 111.3; Potassium 3.8 mmol/L (3.5-5.1)
[2019-05-02] MEDS: methylPREDNISolone 20 MG in SYRINGE 0 ML IV SCH ×4 (09:41→21:27)
--- NOTE | 2019-05-02 14:29 | Gastroenterology Progress Note ---
Date of Service May 02, 2019 Assessment & Plan (1) Ulcerative colitis with rectal bleeding: (2) Bloody stools: Advance diet to Full liquids Change timing of steroids to q8 hours instead of TID (9 AM, 2 PM, 9 PM) Continue supportive care Quant Gold still pending. H/H improved Subjective Leigh Ann Leonardo was seen today at her bedside. She was accompanied by her mother and boyfriend. She feels that her stools have decreased in number and in amount of blood per BM. She does inquire about the timing of her steroid dosing, as she states that her symptoms are worse through the night. She is asking for an advancement of her diet to full liquids. She denies any fevers, chills, nausea, vomiting, hematemesis or melena. She further denies any abdominal pain, and has no further complaints. Physical Exam Constitutional: WD/WN, vitals as above Respiratory: normal respiratory effort, lungs clear to auscultation Cardiovascular: RRR, no murmur, no edema Gastrointestinal (Abdomen): normal bowel sounds, soft, nontender, no hepatosplenomegaly Results & Data Vital Signs (Past 12 Hours) Vital Signs Temp Pulse Resp BP Pulse Ox 05/02/19 07:00 36.4 C L 61 16 103/65 98 PG Care Time/CCT Total # of Minutes Spent Total Time Spent with Patient: Total time spent is greater than 50% in coordination of care (as documented) at patient's floor/unit and/or counseling patient: (1) Ulcerative colitis with rectal bleeding Ulcerative colitis location: ulcerative pancolitis Qualified Code(s): K51.011 - Ulcerative (chronic) pancolitis with rectal bleeding
--- NOTE | 2019-05-02 18:55 | Hospitalist Progress Note ---
Date of Service May 02, 2019 Assessment & Plan (1) Ulcerative colitis with rectal bleeding: - Presented with bloody stools; UC is not responding to current outpatient treatment. Is having some improvement today with less bloody stool Stool cultures negative, C. diff negative Was on IV Flagyl but discontinued for nausea which is now resolved - Previously followed with [facility] but will need to transition to [facility] due to insurance coverage. - CRP 11.9, ESR 39; leukocytosis was resolved but now back up slightly secondary to demargination from corticosteroids - Continue Solu-medrol 20 mg IV q8hr. - Zofran and Compazine prn N/V; Hyoscyamine prn abd pain/cramping. - Flagyl was discontinued - may have been contributing to nausea. - Needs HBV vaccine; Quantiferon gold pending -- will need completion of test prior to starting Humira. - advanced to full liquids diet today -continue IV fluids at 100 cc/hr. - GI following as inpt, greatly appreciate input. If pt. does not improve over next few days, will need transferred to tertiary care for brief cyclosporine treatment. (2) Anemia: - H/H 11-12 -- possibly related to UC flare. - No evidence of GRISELDA on labs. (3) Asthma: - Exercised-induced; no acute exacerbation noted. - Albuterol PRN. (4) DVT prophylaxis: - SCDs; hold pharmacologic ppx in setting of anemia and possible GI bleeding, ambulates Dispo: continued stay for Med/surg for treatment of UC; GI following. Subjective Pt feels there is less blood in her stool today. She has had 8-10 small BMs today since midnight last night. She has abd pains/cramping mostly at nighttime when she seems to have more diarrhea. SHe is hopeful that the hyoscyamine will help that tonight. She cannot tell if her overall condition is improved from previous. Denies lightheadedness, denies CP. Does have anxiety/panic attacks at times, has occasional SOB. Is advanced to full liquids Review of Systems Review of Systems: All systems reviewed & are unremarkable except as noted in HPI & below Physical Exam Constitutional: + thin; no acute distress Eyes: + anicteric sclerae; no eyelid abnormality Neck: trachea midline, no thyromegaly Respiratory: normal respiratory effort, lungs clear to auscultation Cardiovascular: RRR, no murmur, no edema Chest (Breasts): Chest: normal inspection of chest Gastrointestinal (Abdomen): normal bowel sounds, soft, nontender, no hepatosplenomegaly Musculoskeletal: Extremities: extremities normal to inspection; no cyanosis and no clubbing Skin: no rashes, warm and dry Neurologic: moves all extremities and awake; no focal motor deficits Psychiatric: Orientation: alert and cooperative Affect: + flat affect Lymphatic: no lymphedema Results & Data Vital Signs (Past 12 Hours) Vital Signs Temp Pulse Resp BP Pulse Ox 05/02/19 15:18 36.8 C 68 18 95/60 L 98 05/02/19 07:00 36.4 C L 61 16 103/65 98 Laboratory Results 05/02/19 05/02/19 Range/Units 06:38 06:38 WBC 11.83 H (4.8-10.8) K/uL RBC 4.16 L (4.2-5.4) M/uL Hgb 12.4 (12.0-16.0) g/dL Hct 36.9 L (37-47) % MCV 88.7 (80-100) fL MCH 29.8 (25-34) pg MCHC 33.6 (32-36) g/dL RDW Std Deviation 39.8 (36.4-46.3) fL RDW Coeff of Lita 12.3 (11.5-14.5) % Plt Count 361 (130-400) K/uL MPV 8.6 (7.4-10.4) fL Sodium 137 (136-145) mmol/L Potassium 3.8 (3.5-5.1) mmol/L Chloride 105 (98-107) mmol/L Carbon Dioxide 24 (21-32) mmol/L Anion Gap 8.0 (3-11) BUN 13 (7-18) mg/dl Creatinine 0.76 (0.6-1.2) mg/dl Est Cr Clr Drug Dosing 95.7 ml/min Est GFR ( Amer) 129.1 Est GFR (Non-Af Amer) 111.3 BUN/Creatinine Ratio 17.1 (10-20) Glucose 77 (70-99) mg/dl Calcium 9.2 (8.5-10.1) mg/dl PG Care Time/CCT Total # of Minutes Spent Total Time Spent with Patient: Total time spent is greater than 50% in coordination of care (as documented) at patient's floor/unit and/or counseling patient: (1) Ulcerative colitis with rectal bleeding Ulcerative colitis location: ulcerative pancolitis Qualified Code(s): K51.011 - Ulcerative (chronic) pancolitis with rectal bleeding (2) Asthma Asthma severity: mild Asthma persistence: intermittent Asthma complication type: uncomplicated Qualified Code(s): J45.20 - Mild intermittent asthma, uncomplicated
[2019-05-03] MEDS: HYOSCYAMINE SULFATE 0.125 MG TAB SL PRN ×5 (04:30→23:09)
[2019-05-03] MEDS: methylPREDNISolone 20 MG in SYRINGE 0 ML IV SCH ×3 (05:53→21:55)
[2019-05-03] MEDS: SODIUM CHLORIDE 0.9% 1000ML 1,000 ML IV SCH ×2 (05:54→15:36)
[2019-05-03 06:37] LABS: Basophils # (auto) 0.01 K/uL (0-0.2); Basophils % (auto) 0.1 %; Hematocrit (blood only) 35.1 % (37-47); Hemoglobin 11.6 g/dL (12.0-16.0); Immature Granulocytes # (auto) 0.04 K/uL (0.00-0.02); Immature Granulocytes % (auto) 0.4 %; Lymphocytes # (auto) 1.16 K/uL (1.2-3.4); Lymphocytes % (auto) 12.2 %; Mean Corpuscular Hemoglobin 29.8 pg (25-34); Mean Corpuscular Volume 90.2 fL (80-100); Mean Platelet Volume 8.4 fL (7.4-10.4); Monocytes # (auto) 1.53 K/uL (0.11-0.59); Monocytes % (auto) 16.1 %; Neutrophils # (auto) 6.74 K/uL (1.4-6.5); Neutrophils % (auto) 71.2 %; Platelet Count 371 K/uL (130-400); RDW Coefficient of Variation 12.3 % (11.5-14.5); RDW Standard Deviation 40.1 fL (36.4-46.3); Red Blood Count 3.89 M/uL (4.2-5.4); White Blood Count 9.48 K/uL (4.8-10.8)
[2019-05-03 07:12] LABS: Alanine Aminotransferase 11 U/L (12-78); Albumin Level 2.8 gm/dl (3.4-5.0); Aspartate Aminotransferase 6 U/L (15-37); BUN Creatinine Ratio 18.9 (10-20); Bilirubin Direct < 0.1 mg/dl (0-0.2); Blood Urea Nitrogen 12 mg/dl (7-18); Calcium 8.7 mg/dl (8.5-10.1); Carbon Dioxide 24 mmol/L (21-32); Chloride 104 mmol/L (98-107); Creatinine Clr Calc Pharmacy 110.2 ml/min; Est GFR (African American) 145.3; Est GFR (Non-African American) 125.4; Glucose 80 mg/dl (70-99); Magnesium 2.1 mg/dl (1.8-2.4); Potassium 3.7 mmol/L (3.5-5.1); Sodium 136 mmol/L (136-145)
[2019-05-03 07:21] LABS: Alkaline Phosphatase 54 U/L (45-117); Bilirubin,Total 0.4 mg/dl (0.2-1); C Reactive Protein 5.87 mg/dl (0-0.29); Phosphorus 3.5 mg/dl (2.5-4.9); Total Protein 6.9 gm/dl (6.4-8.2)
--- NOTE | 2019-05-03 11:39 | Hospitalist Progress Note ---
Date of Service May 03, 2019 Assessment & Plan (1) Ulcerative colitis with rectal bleeding: - Presented with bloody stools; UC is not responding to current outpatient treatment. Is now much improved with significantly less diarrhea, less abdominal pain, and only minimal blood in stool She is tolerating full liquids diet and will advance to regular diet today Stool cultures negative, C. diff negative Was on IV Flagyl but discontinued for nausea which is now resolved - Previously followed with [facility] but will likely need to transition to [facility] due to insurance coverage. - CRP 11.9 and now down to 5.87, ESR remains at 39; leukocytosis resolved - Continue Solu-medrol 20 mg IV q8hr. She will transition to likely oral prednisone upon discharge-await GI recommendations -Continue Zofran and Compazine prn N/V; Hyoscyamine prn abd pain/cramping. - Needs HBV vaccine as an outpatient as she is not immune; Quantiferon gold still pending -- will need completion of TB test prior to starting Humira. - advanced to regular diet today -Will decrease IV fluids to 75 cc/hr as she is taking plenty of p.o. liquids at this point. - GI following as inpt, greatly appreciate input and will need outpatient follow-up (2) Anemia: - H/H 11-12 --likely related to ulcerative colitis/anemia of chronic disease - No evidence of iron deficiency anemia on labs. -Would follow CBC periodically as an outpatient (3) Asthma: - Exercised-induced; no acute exacerbation noted. - Albuterol PRN. (4) DVT prophylaxis: - SCDs; hold pharmacologic ppx in setting of anemia and possible GI bleeding; she ambulates Dispo: continued stay for Med/surg for treatment of UC; GI following. Possible discharge in the next 1 to 2 days Subjective Patient reports feeling better today. The hyoscyamine really helped with her abdominal cramping last night and she had less diarrhea. Only a small amount of blood in some of her bowel movements. She is only had 5 bowel movements so far today. No nausea or vomiting. She is tolerating full liquids diet. Denies chest pain or shortness of breath. No other concerns. I discussed the case with GI today. Okay to advance diet. Review of Systems Review of Systems: All systems reviewed & are unremarkable except as noted in HPI & below Physical Exam Constitutional: WD/WN, vitals as above + thin; no acute distress Eyes: + anicteric sclerae; no eyelid abnormality Neck: trachea midline, no thyromegaly Respiratory: normal respiratory effort, lungs clear to auscultation Cardiovascular: RRR, no murmur, no edema Chest (Breasts): Chest: normal inspection of chest Gastrointestinal (Abdomen): normal bowel sounds, soft, nontender, no hepatosplenomegaly Musculoskeletal: Extremities: extremities normal to inspection; no cyanosis and no clubbing Skin: no rashes, warm and dry Neurologic: moves all extremities and awake; no focal motor deficits Psychiatric: A+Ox3, euthymic affect Orientation: alert and cooperative Lymphatic: no lymphedema Results & Data Vital Signs (Past 12 Hours) Vital Signs Temp Pulse Resp BP Pulse Ox 05/03/19 07:09 36.9 C 86 16 94/56 L 98 Laboratory Results 05/03/19 05/03/19 05/03/19 Range/Units 06:21 06:21 06:21 WBC 9.48 (4.8-10.8) K/uL RBC 3.89 L (4.2-5.4) M/uL Hgb 11.6 L (12.0-16.0) g/dL Hct 35.1 L (37-47) % MCV 90.2 (80-100) fL MCH 29.8 (25-34) pg MCHC 33.0 (32-36) g/dL RDW Std Deviation 40.1 (36.4-46.3) fL RDW Coeff of Lita 12.3 (11.5-14.5) % Plt Count 371 (130-400) K/uL MPV 8.4 (7.4-10.4) fL Immature Gran % (Auto) 0.4 % Neut % (Auto) 71.2 % Lymph % (Auto) 12.2 % [place] % (Auto) 16.1 % Eos % (Auto) 0.0 % Baso % (Auto) 0.1 % Immature Gran # (Auto) 0.04 H (0.00-0.02) K/uL Neut # (Auto) 6.74 H (1.4-6.5) K/uL Lymph # (Auto) 1.16 L (1.2-3.4) K/uL [place] # (Auto) 1.53 H (0.11-0.59) K/uL Eos # (Auto) 0.00 (0-0.5) K/uL Baso # (Auto) 0.01 (0-0.2) K/uL ESR 39 H (0-21) mm/hr Sodium 136 (136-145) mmol/L Potassium 3.7 (3.5-5.1) mmol/L Chloride 104 (98-107) mmol/L Carbon Dioxide 24 (21-32) mmol/L Anion Gap 8.0 (3-11) BUN 12 (7-18) mg/dl Creatinine 0.66 (0.6-1.2) mg/dl Est Cr Clr Drug Dosing 110.2 ml/min Est GFR ( Amer) 145.3 Est GFR (Non-Af Amer) 125.4 BUN/Creatinine Ratio 18.9 (10-20) Glucose 80 (70-99) mg/dl Calcium 8.7 (8.5-10.1) mg/dl Phosphorus 3.5 (2.5-4.9) mg/dl Magnesium 2.1 (1.8-2.4) mg/dl Total Bilirubin 0.4 (0.2-1) mg/dl Direct Bilirubin < 0.1 (0-0.2) mg/dl AST 6 L (15-37) U/L ALT 11 L (12-78) U/L Alkaline Phosphatase 54 (45-117) U/L C-Reactive Protein 5.87 H (0-0.29) mg/dl Total Protein 6.9 (6.4-8.2) gm/dl Albumin 2.8 L (3.4-5.0) gm/dl TSH 1.300 (0.300-4.500) uIu/ml PG Care Time/CCT Total # of Minutes Spent Total Time Spent with Patient: Total time spent is greater than 50% in coordination of care (as documented) at patient's floor/unit and/or counseling patient: (1) Ulcerative colitis with rectal bleeding Ulcerative colitis location: ulcerative pancolitis Qualified Code(s): K51.011 - Ulcerative (chronic) pancolitis with rectal bleeding (2) Asthma Asthma complication type: uncomplicated Asthma persistence: intermittent Asthma severity: mild Qualified Code(s): J45.20 - Mild intermittent asthma, uncomplicated
--- NOTE | 2019-05-03 13:18 | Gastroenterology Progress Note ---
Date of Service May 03, 2019 Assessment & Plan (1) Ulcerative colitis with rectal bleeding: Continue IV Steroid therapy She will be started on Humira therapy once approved by Insurance and as long as Quant Gold returns negative Advance diet as tolerated Subjective Feeling better today. No abdominal pain, fevers, chills, nausea or vomiting. She did have 4 BM's yesterday, with continued blood. She tolerated full liquid diet. Review of Systems Review of Systems: All systems reviewed & are unremarkable except as noted in HPI & below Physical Exam Constitutional: WD/WN, vitals as above Respiratory: normal respiratory effort, lungs clear to auscultation Cardiovascular: RRR, no murmur, no edema Gastrointestinal (Abdomen): normal bowel sounds, soft, nontender, no hepatosplenomegaly Results & Data Vital Signs (Past 12 Hours) Vital Signs Temp Pulse Resp BP Pulse Ox 05/03/19 07:09 36.9 C 86 16 94/56 L 98 PG Care Time/CCT Total # of Minutes Spent Total Time Spent with Patient: Total time spent is greater than 50% in coordination of care (as documented) at patient's floor/unit and/or counseling patient: (1) Ulcerative colitis with rectal bleeding Ulcerative colitis location: ulcerative pancolitis Qualified Code(s): K51.011 - Ulcerative (chronic) pancolitis with rectal bleeding
[2019-05-04] MEDS: SODIUM CHLORIDE 0.9% 1000ML 1,000 ML IV SCH ×2 (02:09→14:03)
[2019-05-04] MEDS: HYOSCYAMINE SULFATE 0.125 MG TAB SL PRN ×5 (04:32→22:38)
[2019-05-04] MEDS: methylPREDNISolone 20 MG in SYRINGE 0 ML IV SCH ×3 (05:45→21:21)
--- NOTE | 2019-05-04 13:03 | Gastroenterology Progress Note ---
Date of Service May 04, 2019 Assessment & Plan (1) Ulcerative colitis with rectal bleeding: Pt is a 24 y/o female seen for likely ulcerative colitis flare w symptoms of diarrhea, rectal bleeding, abd cramping. Cdiff and stool cx previously negative. She was previously on Balsalazide, but admits recently has self reduced and sometimes skip doses as she had been in remission. Last colonoscopy done 04/28/19 showed severe rios colitis L>R. - Hep Bs Ag negative.Awaiting TB quant gold test. If negative anticipate starting Humira - Needs HBV vaccine, can arrange in outpt setting - Continue Methylprednisone 20mg IV Q8hrs - Continue Levsin on prn basis for bad cramping. - Repeat Cdiff and stool cx - Request CMV staining of colonoscopy path Attg add: I interviewed and examined pt, reviewed chart and labs. Pt reports slow improvement in rectal bleeding, diarrhea, fecal urgency. On exam, she looks well, with non tender abdomen. Will plan initiation of TNF and IV steroids. Subjective Pt reports loose BMs x 4 since midnight. Still w rectal bleeding but cannot tell if bleeding is improved or not since admission. Has abd cramping prior to defecation which then resolves. + mild nausea no vomiting, tolerating diet. Review of Systems Review of Systems: All systems reviewed & are unremarkable except as noted in HPI & below Physical Exam Constitutional: WD/WN, vitals as above well groomed, cooperative and comfortable Eyes: PERRL, conjunctivae normal, anicteric sclerae ENMT: external ear and nose normal, oropharynx normal Respiratory: normal respiratory effort, lungs clear to auscultation Cardiovascular: RRR, no murmur, no edema Gastrointestinal (Abdomen): normal bowel sounds, soft, nontender, no hepatosplenomegaly Skin: no rashes, warm and dry no jaundice Neurologic: Motor/Sensory: no asterixis Psychiatric: A+Ox3, euthymic affect Lymphatic: no lymphedema Results & Data Vital Signs (Past 12 Hours) Vital Signs Temp Pulse Pulse Resp BP Pulse Ox 05/04/19 07:55 36.8 C 69 69 16 92/52 L 98 (1) Ulcerative colitis with rectal bleeding Ulcerative colitis location: ulcerative pancolitis Qualified Code(s): K51.011 - Ulcerative (chronic) pancolitis with rectal bleeding
[2019-05-04 15:25] LABS: Quantiferon Mitogen-NIL >10.00 IU/mL; Quantiferon NIL 0.03 IU/mL; Quantiferon TB Gold Plus NEGATIVE (NEGATIVE); Quantiferon TB1-NIL <0.00 IU/mL; Quantiferon TB2-NIL <0.00 IU/mL
[2019-05-04] MEDS ORDERED: ADALIMUMAB 80 MG/0.8 ML SQ ONE (15:42)
--- NOTE | 2019-05-04 17:56 | Hospitalist Progress Note ---
Date of Service May 04, 2019 Assessment & Plan (1) Ulcerative colitis with rectal bleeding: - Presented with bloody stools; UC is not responding to current outpatient treatment. Is now much improved with significantly less diarrhea, less abdominal pain, and only minimal blood in stool She is tolerating advanced diet Stool cultures negative, C. diff negative, GI is repeating these Was on IV Flagyl but discontinued for nausea which is now resolved - Previously followed with [facility] but will likely need [place] [facility] [place]. - CRP 11.9 and now down to 5.87, ESR remains at 39; leukocytosis resolved - Continue Solu-medrol 20 mg IV q8hr. She will transition to likely oral prednisone upon discharge-await GI recommendations -Continue Zofran and Compazine prn N/V; Hyoscyamine prn abd pain/cramping. - Needs HBV vaccine as an outpatient as she is not immune; Quantiferon gold still pending -- will need completion of TB test prior to starting Humira. GI plans for outpt f/u on 05/08 (2) Anemia: - H/H - --likely related to ulcerative colitis/anemia of chronic disease - No evidence of iron deficiency anemia on labs. -Would follow CBC periodically as an outpatient (3) Asthma: - Exercised-induced; no acute exacerbation noted. - Albuterol PRN. (4) DVT prophylaxis: - SCDs; hold pharmacologic ppx in setting of anemia and possible GI bleeding; she ambulates Dispo: continued stay for Med/surg for treatment of UC; GI following. Subjective Pt continues to feel improved. She is advanced to solid foods today and having lunch during our interview--tomato soup, grilled cheese, coke. She states her abd cramping is now just with bowel movements. She is still having several bowel movements daily, but they are getting more formed and there is only blood "tinges around the edges" now. She feels cautiously optimistic. She tells me she rarely drinks soda and only wanted a few sips today. No intolerance of PO. Pt denies fever, SOB, chest pain, n/v, LE pain or swelling. Review of Systems Review of Systems: Pertinent positives and negatives reviewed in HPI--all others negative Physical Exam Constitutional: WD/WN, vitals as above Eyes: normal visual eduardo by confrontation and + anicteric sclerae Neck: normal visual inspection and trachea midline Respiratory: normal respiratory effort, lungs clear to auscultation Cardiovascular: Rate/Rhythm: regular rate and regular rhythm Gastrointestinal (Abdomen): Inspection/Auscultation: abdomen not distended Percussion/Palpation: abdomen soft; abdomen nontender Musculoskeletal: Head/Neck/Chest: normocephalic and head atraumatic negative for edema, peripheral pulses intact Skin: no rashes, warm and dry Neurologic: awake; not confused Speech / Cognition: normal speech Psychiatric: A+Ox3, euthymic affect Results & Data Vital Signs (Past 12 Hours) Vital Signs Temp Pulse Pulse Resp BP Pulse Ox 05/04/19 15:29 36.9 C 81 16 99/62 L 97 05/04/19 07:55 36.8 C 69 69 16 92/52 L 98 PG Care Time/CCT Total # of Minutes Spent Total Time Spent with Patient: Total time spent is greater than 50% in c oordination of care (as documented) at patient's floor/unit and/or counseling patient: (1) Ulcerative colitis with rectal bleeding Ulcerative colitis location: ulcerative pancolitis Qualified Code(s): K51.011 - Ulcerative (chronic) pancolitis with rectal bleeding (2) Asthma Asthma severity: mild Asthma persistence: intermittent Asthma complication type: uncomplicated Qualified Code(s): J45.20 - Mild intermittent asthma, uncomplicated
[2019-05-05] MEDS: SODIUM CHLORIDE 0.9% 1000ML 1,000 ML IV SCH (02:51)
[2019-05-05] MEDS: HYOSCYAMINE SULFATE 0.125 MG TAB SL PRN ×3 (04:54→17:34)
[2019-05-05] MEDS: methylPREDNISolone 20 MG in SYRINGE 0 ML IV SCH (05:57)
--- NOTE | 2019-05-05 11:15 | Gastroenterology Progress Note ---
Date of Service May 05, 2019 Assessment & Plan (1) Ulcerative colitis with rectal bleeding: Pt is a 24 y/o female seen for likely ulcerative colitis flare w symptoms of diarrhea, rectal bleeding, abd cramping. Cdiff and stool cx previously negative. She was previously on Balsalazide, but admits recently has self reduced and sometimes skip doses as she had been in remission. Last colonoscopy done 04/28/19 showed severe rios colitis L>R. - Hep Bs Ag negative. TB quant gold test negative. Received Humira induction on 05/04/2019 - Needs HBV vaccine, can arrange in outpt setting - Will DC Methylprednisone and change to Prednisone PO taper: 40mg daily x 1 week, 30mg daily x 1 week, 25mg daily x 1 week, 20mg daily x 1 week, 15mg daily x 1 week, 10mg daily x1 week, 5mg daily x 1 week. - Continue Levsin on prn basis for bad cramping. - Repeat Cdiff and stool cx -> Cdiff negative. - Request CMV staining of colonoscopy path -> negative. - Anticipate DC within next day Attg add: I interviewed and examined pt, reviewed chart and labs. She continues to slowly improve, with decr rectal bleeding, decr stool frequency, and decr abd pain. Plan for d/c tomorrow with outpt pred. Subjective Pt reports 2 BMs overnight. Stools pudding like consistency with some rectal bleeding. Mild abd cramping. Tolerating solids Review of Systems Review of Systems: All systems reviewed & are unremarkable except as noted in HPI & below Physical Exam Constitutional: WD/WN, vitals as above well groomed, cooperative and comfortable Eyes: PERRL, conjunctivae normal, anicteric sclerae ENMT: external ear and nose normal, oropharynx normal Respiratory: normal respiratory effort, lungs clear to auscultation Cardiovascular: RRR, no murmur, no edema Gastrointestinal (Abdomen): normal bowel sounds, soft, nontender, no hepatosplenomegaly Skin: no rashes, warm and dry no jaundice Neurologic: Motor/Sensory: no asterixis Psychiatric: A+Ox3, euthymic affect Lymphatic: no lymphedema Results & Data Vital Signs (Past 12 Hours) Vital Signs Temp Pulse Resp BP Pulse Ox 05/05/19 07:11 36.8 C 113 H 16 105/68 98 05/04/19 23:25 36.8 C 61 16 87/50 L 96 (1) Ulcerative colitis with rectal bleeding Ulcerative colitis location: ulcerative pancolitis Qualified Code(s): K51.011 - Ulcerative (chronic) pancolitis with rectal bleeding
[2019-05-05] MEDS: predniSONE 20 MG TAB PO SCH ×2 (12:37→16:45)
--- NOTE | 2019-05-05 13:58 | Hospitalist Progress Note ---
Date of Service May 05, 2019 Assessment & Plan (1) Ulcerative colitis with rectal bleeding: - Presented with bloody stools; UC is not responding to current outpatient treatment. Is now much improved with significantly less diarrhea, less abdominal pain, and only minimal blood in stool She is tolerating advanced diet Stool cultures negative x1 with repeat pending, C. diff negative x2 Was on IV Flagyl but discontinued for nausea which is now resolved - Previously followed with [facility] but will likely need [place] [facility] [place]. - CRP 11.9 and now down to 5.87, ESR remains at 39; leukocytosis resolved - Plan from GI to taper Solu-medrol 20 mg IV q8hr to PO prednisone today and upon discharge -Continue Zofran and Compazine prn N/V; Hyoscyamine prn abd pain/cramping. - Needs HBV vaccine as an outpatient as she is not immune; Quantiferon gold stil l pending Humira dose initiated on 05/04 Advised pt to discuss concerns with GI today GI plans for outpt f/u on 05/08 (2) Anemia: - H/H -12 --likely related to ulcerative colitis/anemia of chronic disease - No evidence of iron deficiency anemia on labs. -Would follow CBC periodically as an outpatient (3) Asthma: - Exercised-induced; no acute exacerbation noted. - Albuterol PRN. (4) DVT prophylaxis: - SCDs; hold pharmacologic ppx in setting of anemia and possible GI bleeding; she ambulates Dispo: continued stay for Med/surg for treatment of UC; GI following. Subjective Pt is anxious about d/c to home when it does occur because she is still having blood in her stools. It is much less, but still concerning to her and she is concerned that it makes her a higher risk for readmission. Mild cramping still, but only with bowel movements. Bowel movements are more firm today. Tolerating PO. Trying to drink a lot of water. Pt denies fever, SOB, chest pain, n/v, LE pain or swelling. Review of Systems Review of Systems: Pertinent positives and negatives reviewed in HPI--all others negative Physical Exam Constitutional: WD/WN, vitals as above Eyes: normal visual eduardo by confrontation and + anicteric sclerae Neck: normal visual inspection and trachea midline Respiratory: normal respiratory effort, lungs clear to auscultation Cardiovascular: Rate/Rhythm: regular rate and regular rhythm Gastrointestinal (Abdomen): Inspection/Auscultation: abdomen not distended Percussion/Palpation: abdomen soft; abdomen nontender Musculoskeletal: Head/Neck/Chest: normocephalic and head atraumatic Skin: no rashes, warm and dry Neurologic: awake; not confused Speech / Cognition: normal speech Psychiatric: A+Ox3, euthymic affect Results & Data Vital Signs (Past 12 Hours) Vital Signs Temp Pulse Resp BP Pulse Ox 05/05/19 07:11 36.8 C 113 H 16 105/68 98 PG Care Time/CCT Total # of Minutes Spent Total Time Spent with Patient: Total time spent is greater than 50% in coordination of care (as documented) at patient's floor/unit and/or counseling patient: (1) Ulcerative colitis with rectal bleeding Ulcerative colitis location: ulcerative pancolitis Qualified Code(s): K51.011 - Ulcerative (chronic) pancolitis with rectal bleeding (2) Asthma Asthma severity: mild Asthma persistence: intermittent Asthma complication type: uncomplicated Qualified Code(s): J45.20 - Mild intermittent asthma, uncomplicated
[2019-05-05 23:48] VITALS: O2SAT 98
[2019-05-06] MEDS: HYOSCYAMINE SULFATE 0.125 MG TAB SL PRN (02:47)
[2019-05-06 07:41] VITALS: BP 112/71; PULSE 91; TEMP 98.1
[2019-05-06] MEDS: predniSONE 20 MG TAB PO SCH (08:51)
--- NOTE | 2019-05-06 09:58 | Gastroenterology Progress Note ---
Date of Service May 06, 2019 Assessment & Plan (1) Ulcerative colitis with rectal bleeding: Pt is a 24 y/o female admitted with UC flare. Stool studies negative for infections. She received IV steroids, now converted to Prednisone PO taper. Also had received Humira induction on 05/04/19. - Hep Bs Ag negative. TB quant gold test negative. Received Humira induction on 05/04/2019 - Needs HBV vaccine, can arrange in outpt setting - Prednisone PO taper: 40mg daily x 1 week, 30mg daily x 1 week, 25mg daily x 1 week, 20mg daily x 1 week, 15mg daily x 1 week, 10mg daily x1 week, 5mg daily x 1 week. - Continue Levsin on prn basis for bad cramping. - Repeat Cdiff and stool cx -> Cdiff negative. - Request CMV staining of colonoscopy path -> negative. - No contraindication for DC home today; we will help arrange f/u with Dr. Donis. Subjective Pt had uneventful night, stool more formed w mild amt of BRBPR. Denies much abd cramping, tolerating solids. She expressed readiness to go home today Review of Systems Review of Systems: All systems reviewed & are unremarkable except as noted in HPI & below Physical Exam Constitutional: WD/WN, vitals as above well groomed, cooperative and comfortable Eyes: PERRL, conjunctivae normal, anicteric sclerae ENMT: external ear and nose normal, oropharynx normal Respiratory: normal respiratory effort, lungs clear to auscultation Cardiovascular: RRR, no murmur, no edema Gastrointestinal (Abdomen): normal bowel sounds, soft, nontender, no hepatosplenomegaly Skin: no rashes, warm and dry no jaundice Neurologic: Motor/Sensory: no asterixis Psychiatric: A+Ox3, euthymic affect Lymphatic: no lymphedema Results & Data Vital Signs (Past 12 Hours) Vital Signs Temp Pulse Resp BP Pulse Ox 05/06/19 07:41 36.7 C 91 H 16 112/71 98 05/05/19 23:05 36.8 C 71 16 95/58 L 98 (1) Ulcerative colitis with rectal bleeding Ulcerative colitis location: ulcerative pancolitis Qualified Code(s): K51.011 - Ulcerative (chronic) pancolitis with rectal bleeding
--- NOTE | 2019-05-06 11:53 | Discharge Summary ---
Date of Service May 06, 2019 Admission HPI Per Admitting Provider Leigh Ann Leonardo is a 24-year-old female with history of ulcerative colitis on balsalazide presenting with approximately 2 weeks of worsening UC symptoms to include rectal bleeding, cramping, pain and diarrhea. She was started on a steroid taper just before 04/22 and was currently taking prednisone 50 mg p.o. daily. She reports a low-grade subjective fever last night. She had a colonoscopy performed today by Dr. Donis which revealed severe pancolitis, left side worse than right. Admission requested for treatment of UC flare. Patient complaining of mild abdominal pain otherwise no complaints at this time. Principal Diagnosis Pt continues to feel she is improving. Still with mild cramping with bowel movements only, but much better. Still notes a blood "tinge" with her bowel movements, but also better. She has loose stools, multiple times a day, but this is also improving. Tolerating PO without issues. She spoke with GI last night and is feeling better about d/c to home. Pt denies fever, SOB, chest pain, n/v, LE pain or swelling. Discharge Exam Constitutional WD/WN, vitals as above Eyes normal visual eduardo by confrontation and + anicteric sclerae Neck normal visual inspection and trachea midline Respiratory normal respiratory effort, lungs clear to auscultation Cardiovascular Rate/Rhythm: regular rate and regular rhythm Gastrointestinal (Abdomen) Inspection/Auscultation: abdomen not distended Percussion/Palpation: abdomen soft; abdomen nontender Musculoskeletal Head/Neck/Chest: normocephalic and head atraumatic Skin no rashes, warm and dry Neurologic awake; not confused Speech / Cognition: normal speech Psychiatric A+Ox3, euthymic affect Discharge Data Allergies Allergy/AdvReac Type Severity Reaction Status Date / Time cat dander Allergy Mild sneezing, Verified 04/28/19 10:28 watery eyes Consultations 04/28/19 15:44 Consult Case Management - Discharge Planning Routine Consult Gastroenterology Routine Procedures Performed Operation Date: 04/28/19 11:15 Actual Procedures p Colonoscopy Biopsy Cytology(Not Applicable) - Pedrito Donis MD Hospital Course (1) Ulcerative colitis with rectal bleeding: - Presented with bloody stools; UC did not respond to outpatient treatme nt. Is now much improved with significantly less diarrhea, less abdominal pain, and only minimal blood in stool She is tolerating advanced diet Stool cultures negative x1 with repeat pending, C. diff negative x2 Was on IV Flagyl but discontinued for nausea which is now resolved - Previously followed with [facility] but will likely need to transition to [facility] due to insurance coverage. - CRP 11.9 and now down to 5.87, ESR remains at 39; leukocytosis resolved - Taper Solu-medrol 20 mg IV q8hr to PO prednisone on 05/05 and tolerating well, will complete steroid taper as per GI instruction on discharge Hyoscyamine prn abd pain/cramping. - Needs HBV vaccine as an outpatient as she is not immune; Quantiferon gold still pending Humira dose initiated on 05/04 GI plans for outpt f/u on 05/08 (2) Anemia: - H/H - --likely related to ulcerative colitis/anemia of chronic disease - No evidence of iron deficiency anemia on labs. -Would follow CBC periodically as an outpatient as per GI (3) Asthma: - Exercised-induced; no acute exacerbation noted. - Albuterol PRN. (4) DVT prophylaxis: - SCDs; hold pharmacologic ppx in setting of anemia and possible GI bleeding; she ambulates Total Time Total Time Spent Total Time Spent (In Minutes): >30 Total Time Includes: Examination of the Patient, Discharge Planning, Medication Reconciliation, Communication With Other Providers and Other Discharge Plan Discharge Items Patient Disposition: Home - Self-Care Reason For Visit: FLARE OF ULCERATIVE COLITIS Discharge Diagnosis: Ulcerative colitis flare Non-emergency contact: Primary Care Provider and Prize Jacker Call non-emergency contact if: you have any medication questions, your symptoms worsen, your pain is not controlled and your pain is worsening Follow-up/Referrals: [facility] [Primary Care Provider] - Katrin Cross [Nurse Practitioner] - 05/19/19 12:00 pm Diet: Regular Addtl Attending Provider Instructions: You should follow up with GI as they have requested on 05/08 unless other arrangements are made You could consider taking a probiotic to help with your overall gut health. The one I recommend for most patients is J[employer] EPS 5 billion. It is a mix of 8 different bacteria. You can find this product at [employer] in [employer]. You should start with 1 a day. The goal is to have 1 solid bowel movement a day. If after 2-3 weeks you are still having loose stools, you can increase to 2 a day. You can take up to 4 a day, but like any medication or supplement you should try to take the least amount that you need. Addtl [employer] Provider Instructions: [facility] G[facility] office will be in contact with you directly regarding subsequent Humira injection appointments. Pending Studies at Discharge: Yes Studies:: repeat stool cx Stand-Alone Forms: Anesthesia/Sedation, Adult, [facility], Smoking Cessation Medications and DC Order Prescriptions: New prednisone 20 mg Tablet 40 mg PO DAILY Qty: 30 RF: 0 hyoscyamine sulfate 0.125 mg Tablet, Sublingual 0.125 mg sublingual Q4H PRN (Reason: abd cramping) Qty: 30 RF: 0 Continued acetaminophen [Tylenol] 325 mg Tablet 325 mg PO QID PRN (Reason: Pain) RF: 0 prednisone 50 mg Tablet 50 mg PO QAM RF: 0 balsalazide 750 mg Capsule 750 mg PO QID RF: 0 albuterol sulfate 90 mcg/actuation Hfa Aerosol Inhaler 1 puff INHALATION Q6H PRN (Reason: Shortness Of Breath) RF: 0 Mirena 20 mcg/24 hours (5 yrs) 52 mg Intrauterine Device 20 mcg INTRAUTERINE UD RF: 0 tramadol 50 mg Tablet 50 mg PO Q6H PRN (Reason: Pain) RF: 0 ondansetron 4 mg tablet,disintegrating 4 mg PO Q8H PRN (Reason: nausea and vomiting) Qty: 10 RF: 0 Discharge Orders: Discharge Order (Routine); Ordered 05/06/19 Ordered By: Vianney Shetty/Other Patient Handouts: Hyoscyamine Sulfate Oral tablet, Prednisone Oral tablet Admission Data Admit Date/Time: 04/28/19 12:48 Attending Provider: Vianney Baez Admit Provider: Nicolasa Cabrera Primary Care Provider: [place] Other Providers: Pedrito Donis Other Interventions: Discharge Summary Assessment (RN) Last Done: 04/28/19 15:48 DC Date/Time DO NOT enter until pt leaves facility: 05/06/19 12:59
== END 2019-05-06 12:59 | disposition home or self-care (01) | DRG 387 ==
LOC: ENDO 10:18 → 3W 12:48 → SUATTDRO 12:48